=== PATIENT | male | born 1945 | race Caucasian/White ===

== ENCOUNTER → 2017-06-21 | Outpatient (CLI) | payer BC ==
[~2017-06-21] MED LIST: OPTIRAY 320 IV PRN
--- NOTE | 2017-06-21 10:58 | DIAGNOSTIC IMAGING REPORT ---
CT ANGIO ABD/PELVIS COMBO CT DOSE: 1796.97 mGy.cm CLINICAL HISTORY: Abdominal aortic aneurysm TECHNIQUE: Unenhanced images were obtained through the abdomen and pelvis. The patient was then rescanned in a dynamic helical fashion during intravenous administration 1 through 20 cc of Optiray 320. MIP imaging was performed. A dose lowering technique was utilized adhering to the principles of ALARA. COMPARISON STUDY: September 28, 2013 FINDINGS: The noncontrast portion study, no renal, ureteral, or bladder calculi are visualized. There is no evidence of acute aortic hematoma. Visualized portions lung bases are unremarkable. There is mild hepatic steatosis. No hepatic masses are visualized this arterial phase study. There is a calcified gallstone. No splenic masses are visualized. Masses are visualized. There is bilateral low density adrenal gland thickening unchanged the prior study. There is a 15 mm lower pole left renal hypodensity. This has a precontrast attenuation value of 24, and a postcontrast attenuation value of 31. This likely represents a hyperdense cyst There is colonic diverticulosis. There are no acute peridiverticular inflammatory changes. There are no transition zones indicate bowel obstruction. Para-aortic and common iliac artery lymph nodes remain the upper limits of normal in size. There is no evidence of celiac superior mesenteric or renal artery stenosis. There is a fusiform infrarenal abdominal aortic aneurysm measuring 5.4 cm in maximal AP diameter. The maximal transverse diameter is 5.2 cm. The aneurysm extends over a length of 8 cm, and terminates at the level of the bifurcation. There is no evidence of unilaterally significant common or external iliac artery stenosis. The aneurysm is partially thrombosed with a residual lumen measuring 4.5 x 3.7 cm. There is no current evidence of aneurysm rupture or leakage. There are small fat-containing inguinal hernias. There is mild prostamegaly. IMPRESSION: 1. Enlarging infrarenal abdominal aortic aneurysm currently measuring 5.4 x 5.2 cm in maximal AP and transverse diameter 2. Cholelithiasis 3. No evidence of bowel obstruction. No evidence of free air Electronically signed by: Vikas Trevino M.D. 06/21/2017 10:57 AM Dictated Date/Time: 06/21/2017 10:47 AM
== END | disposition home or self-care (01) ==
LOC: C.CTS 10:18
PROVIDERS: ATTEND Surgery Vascular Surgery
DX: I71.4 Abdominal aortic aneurysm, without rupture (principal); K80.20 Calculus of gallbladder without cholecystitis without obstruction

== ENCOUNTER → 2017-10-18 | Outpatient (CLI) | payer MEDICARE ==
[~2017-10-18] MED LIST changes: +ASCO10003 PO; +ATOR-22 PO; +CYAN100020 PO; +CYCL5TAB PO; +LISI-461 PO; +OXYC-57 PO; +VENL150C2 PO; +ZANTREX PO
--- NOTE | 2017-10-18 12:04 | DIAGNOSTIC IMAGING REPORT ---
CT ANGIOGRAM OF THE ABDOMEN AND PELVIS COMBO CLINICAL HISTORY: Follow-up status post endovascular repair of an abdominal aneurysm. COMPARISON STUDY: CT angiogram of the abdomen and pelvis dated 06/21/2017. TECHNIQUE: Before and following the IV administration of 119 cc of Optiray 320, CT angiogram of the abdomen and pelvis was performed from the lung bases the proximal femora using the stent graft protocol. Images are reviewed in the axial, sagittal, and coronal planes. 3-D MIPS images are created and assessed. IV contrast was administered without complication. A dose lowering technique was utilized adhering to the principles of ALARA. CT DOSE: 1827.60 mGy.cm FINDINGS: Lower chest: The heart is mildly enlarged and without pericardial effusion. Emphysematous change is noted at the lung bases. No airspace consolidation or pleural effusion is identified. There is a tiny hiatal hernia. Liver: The contrast-enhanced liver is normal in size, contour, and attenuation. There is no intrahepatic or ductal dilatation. The main portal veins appear patent. Gallbladder: There are small calcified gallstones. Spleen: Normal in size and attenuation. Pancreas: Unremarkable. Adrenal glands: There is nodular thickening of the adrenal glands. Kidneys: No renal calculi are identified on the unenhanced series. The contrast enhanced kidneys are normal in size and without hydronephrosis. The kidneys enhance symmetrically. A 1.4 cm low-attenuation lesion in the interpolar left kidney is unchanged and likely resents a complex cyst. Abdominal aorta and iliac arteries: There is advanced atherosclerotic calcification of the abdominal aorta. The patient is status post aortobiiliac stent graft repair of a bilobed infrarenal abdominal aortic aneurysm. The residual aneurysm sac measures up to 5.2 cm in AP diameter and 5.1 cm in transverse diameter. The stent graft is patent. There is a small endoleak seen within the inferior aspect of the aneurysm sac on axial image #234 of the arterial phase series. This is likely a type II endoleak related to retrograde flow from the inferior mesenteric artery. A second small endoleak is identified on the posterior/inferior aspect of the aneurysm sac on image #244 likely related to a lumbar vessel seen on image #248. There is advanced atherosclerotic plaque and irregularity identified throughout the iliac vessels. The iliac vessels are patent. Major branches of the abdominal aorta: The celiac trunk and superior mesenteric artery are widely patent. There is filling of the inferior mesenteric artery, likely via retrograde flow as this arises from the aneurysm sac. See above for discussion of endoleak. The splenic artery is widely patent. Hepatic arterial anatomy is conventional. Single bilateral renal arteries are patent. Bowel: There is moderate colonic diverticulosis without CT evidence of acute diverticulitis. Mild to moderate colonic fecal retention is observed. No bowel obstruction is seen. The appendix is well-visualized and normal. Peritoneum: There is no intraperitoneal free air or abdominal ascites. There is a tiny fat-containing umbilical hernia. Lymphadenopathy: There are mildly enlarged retroperitoneal comment right iliac chain, and right inguinal lymph nodes. Retroperitoneal nodes measure up to 11 mm short axis, right iliac chain nodes measure up to 10 mm short axis, and inguinal nodes measure up to 10 mm short axis. Pelvic viscera: The prostate gland is enlarged and heterogeneous, measuring 5.0 cm in transverse diameter. The bladder wall is mildly thickened and trabeculated suggesting chronic outlet obstruction. Skeletal structures: The skeletal structures are osteopenic. There is mild to moderate lumbosacral spondylosis. No lytic or blastic lesions are seen. IMPRESSION: 1. There are postoperative changes from aortobiiliac stent graft repair of an infrarenal abdominal aneurysm. The stent is patent and the residual aneurysm sac measures 5.2 x 5.1 cm. 2. There are 2 small endoleaks as detailed above, likely representing type II endoleaks related to the inferior mesenteric artery and a lumbar vessel. 3. Cardiomegaly and emphysema. 4. Moderate colonic diverticulosis without CT evidence of acute diverticulitis. 5. There are mildly enlarged retroperitoneal, right iliac chain, and right inguinal lymph nodes. This is new from previous and may be a reactive basis. Clinical correlation will be required. 6. Cholelithiasis. 8. Additional findings as above. Electronically signed by: Dylan Mejia M.D. 10/18/2017 12:02 PM Dictated Date/Time: 10/18/2017 11:47 AM
== END | disposition home or self-care (01) ==
LOC: C.CTS 10:46
PROVIDERS: ATTEND Surgery Vascular Surgery
DX: I71.4 Abdominal aortic aneurysm, without rupture (principal); Z98.890 Other specified postprocedural states; I51.7 Cardiomegaly; J43.9 Emphysema, unspecified; K57.30 Diverticulosis of large intestine without perforation or abscess without bleeding; K80.20 Calculus of gallbladder without cholecystitis without obstruction